=== PATIENT | female | born 1985 | race Hispanic/Latino ===

== ENCOUNTER 2017-08-14 08:39 | Emergency (ER) | payer MEDICAID, OTHER ==
[2017-08-14] MEDS ORDERED: TORADOL IM ONE (08:58)
--- NOTE | 2017-08-14 09:04 | Emergency Department Report ---
ED Back Pain/Injury HPI - General Chief Complaint: Back Pain/Injury Stated Complaint: BACK PAIN Time Seen by Provider: 08/14/17 08:56 Source: patient Limitations: No Limitations - History of Present Illness Initial Comments: This is a 32-year-old female nontoxic, well nourished in appearance, no acute signs of distress presents to the ED complaining of chronic intermittent back pain. Patient stated yesterday she was cooking and bending over and felt a sharp pain towards her lower back after lifting a pot for cooking. Patient denies any trauma to the region. Patient stated he has history of lumbar slipped disc and has these chronic episodes of lower back pain. Patient denies any bladder or bowel stability. Denies dysuria, polyuria, hematuria. Patient denies any urinary symptoms. Denies any abdominal pain, chest pain, shortness of breath, numbness, tingling, fever, chills, nausea, vomiting, headache, stiff neck, blurry vision. They stated back pain radiates towards her left lower extremity and describes it as aching with level of 8 out of 10. Patient states allergies to sulfa. Past medical history includes lumbar slipped disc. MD Complaint: back pain -: Gradual, days(s) (1) Similar Symptoms Previously: Yes Place: home Radiation: left leg Severity: moderate Severity scale (0 -10): 8 Quality: aching Consistency: intermittent Improves With: immobilization, supine, sitting upright Worsens With: movement, walking Context: while lifting, turning/twisting Associated Symptoms: denies other symptoms. denies: confusion, weakness, chest pain, numbness, difficulty walking, cough, difficulty urinating, diaphoresis, incontinence, fever/chills, constipation, headaches, abdominal pain, loss of appetite, malaise, nausea/vomiting, rash, seizure, shortness of breath, syncope - Related Data Previous Rx's Medication Instructions Recorded Last Taken Type methOCARBAMOL [Robaxin TAB] 500 mg PO BID #20 tab 04/17/15 Unknown Rx Vit-Fe Fumar-FA [ 1 tab PO QDAY #90 tablet 06/15/15 Unknown Rx Vitamin] Promethazine [Phenergan TAB] 25 mg PO Q6HR PRN #25 tab 06/15/15 Unknown Rx Acetaminophen/Codeine [Tylenol 1 tab PO Q8H PRN #14 tab 12/27/15 Unknown Rx /Codeine # 3 tab] Cyclobenzaprine [Flexeril] 10 mg PO BID PRN #10 tablet 08/14/17 Unknown Rx Ibuprofen [Motrin 600 MG tab] 600 mg PO Q8H PRN #30 tablet 08/14/17 Unknown Rx Nitrofurantoin [place]/M-Cryst 100 mg PO Q12HR #14 capsule 08/14/17 Unknown Rx [Macrobid CAP] Allergies Allergy/AdvReac Type Severity Reaction Status Date / Time Sulfa (Sulfonamide Allergy Unknown Verified 04/17/15 14:39 Antibiotics) ED Review of Systems ROS: Stated complaint: BACK PAIN Other details as noted in HPI Constitutional: denies: chills, fever Eyes: denies: eye pain, eye discharge, vision change ENT: denies: ear pain, throat pain Respiratory: denies: cough, shortness of breath, wheezing Cardiovascular: denies: chest pain, palpitations Endocrine: no symptoms reported Gastrointestinal: denies: abdominal pain, nausea, diarrhea Genitourinary: denies: urgency, dysuria, discharge Musculoskeletal: denies: back pain, joint swelling, arthralgia Skin: denies: rash, lesions Neurological: denies: headache, weakness, paresthesias Psychiatric: denies: anxiety, depression Hematological/Lymphatic: denies: easy bleeding, easy bruising ED Past Medical Hx - Past Medical History Previous Medical History?: Yes Additional medical history: slipped disk - Surgical History Past Surgical History?: No - Social History Smoking Status: Current Every Day Smoker Substance Use Type: None - Medications Home Medications: Home Medications Medication Instructions Recorded Confirmed Last Taken Type methOCARBAMOL [Robaxin TAB] 500 mg PO BID #20 tab 04/17/15 Unknown Rx Vit-Fe Fumar-FA [ 1 tab PO QDAY #90 tablet 06/15/15 Unknown Rx Vitamin] Promethazine [Phenergan TAB] 25 mg PO Q6HR PRN #25 tab 06/15/15 Unknown Rx Acetaminophen/Codeine [Tylenol 1 tab PO Q8H PRN #14 tab 12/27/15 Unknown Rx /Codeine # 3 tab] Cyclobenzaprine [Flexeril] 10 mg PO BID PRN #10 tablet 08/14/17 Unknown Rx Ibuprofen [Motrin 600 MG tab] 600 mg PO Q8H PRN #30 tablet 08/14/17 Unknown Rx Nitrofurantoin [place]/M-Cryst 100 mg PO Q12HR #14 capsule 08/14/17 Unknown Rx [Macrobid CAP] ED Physical Exam - General Limitations: No Limitations General appearance: alert, in no apparent distress - Head Head exam: Present: atraumatic, normocephalic, normal inspection - Eye Eye exam: Present: normal appearance, PERRL, EOMI. Absent: scleral icterus, conjunctival injection, nystagmus, periorbital swelling, periorbital tenderness Pupils: Present: normal accommodation - ENT ENT exam: Present: normal exam, normal orophraynx, mucous membranes moist, TM's normal bilaterally, normal external ear exam - Neck Neck exam: Present: normal inspection, full ROM. Absent: tenderness, meningismus, lymphadenopathy, thyromegaly - Respiratory Respiratory exam: Present: normal lung sounds bilaterally. Absent: respiratory distress, wheezes, rales, rhonchi, stridor, chest wall tenderness, accessory muscle use, decreased breath sounds, prolonged expiratory - Cardiovascular Cardiovascular Exam: Present: regular rate, normal rhythm, normal heart sounds. Absent: bradycardia, tachycardia, irregular rhythm, systolic murmur, diastolic murmur, rubs, gallop - GI/Abdominal GI/Abdominal exam: Present: soft, normal bowel sounds. Absent: distended, tenderness, guarding, rebound, rigid, diminished bowel sounds - Rectal Rectal exam: Present: deferred - Extremities Exam Extremities exam: Present: normal inspection, full ROM, normal capillary refill. Absent: tenderness, pedal edema, joint swelling, calf tenderness - Back Exam Back exam: Present: normal inspection, full ROM, paraspinal tenderness (lumbar region), rash noted. Absent: tenderness, CVA tenderness (R), CVA tenderness (L) , muscle spasm, vertebral tenderness - Expanded Back Exam Expanded Back exam: Absent: saddle anesthesia Back exam: Negative Straight Leg Raising: Left, Right - Neurological Exam Neurological exam: Present: alert, oriented X3, CN II-XII intact, normal gait, reflexes normal - Psychiatric Psychiatric exam: Present: normal affect, normal mood - Skin Skin exam: Present: warm, dry, intact, normal color. Absent: rash ED Course Vital Signs 08/14/17 08:44 Temperature 97.4 F L Pulse Rate 68 Respiratory 16 Rate Blood Pressure 133/74 O2 Sat by Pulse 99 Oximetry - Reevaluation(s) Reevaluation #1: 08/14/17 09:01 Patient is speaking in full sentences with no signs of distress noted. ED Medical Decision Making - Medical Decision Making This is a 32-year-old female that presents with low back strain. Patient is stable and was examined by myself. There is no urinary symptoms or CVA tenderness. Patient is a chronic issue and examination consistent of low back strain. Patient received Toradol 60 mg IM in the ED and states that this has significantly improved and are resolving. Patient denies any trauma to the region. Patient was instructed to follow-up with a primary care doctor in 3-5 days or if symptoms worsen and continue return to emergency room as soon as possible possible. Patient was prescribed ibuprofen and Flexeril and was instructed not operate heavy machinery while taking Flexeril due to sedation. Patient is hemodynamically stable with stable vital signs. Patient states he is feeling better. At time time of discharge, the patient does not seem toxic or ill in appearance. No acute signs of distress noted. Patient agrees to discharge treatment plan of care. No further questions noted by the patient. UA indicates UTI. Critical care attestation.: If time is entered above; I have spent that time in minutes in the direct care of this critically ill patient, excluding procedure time. ED Disposition Clinical Impression: Low back strain Qualifiers: Encounter type: initial encounter Qualified Code(s): S39.012A - Strain of muscle, fascia and tendon of lower back, initial encounter UTI (urinary tract infection) Qualifiers: Urinary tract infection type: site unspecified Hematuria presence: with hematuria Qualified Code(s): N39.0 - Urinary tract infection, site not specified ; R31.9 - Hematuria, unspecified; R31.9 - Hematuria, unspecified Disposition: -01 TO HOME OR SELFCARE Is pt being admited?: No Does the pt Need Aspirin: No Condition: Stable Instructions: Ibuprofen (By mouth), Cyclobenzaprine (By mouth), Low Back Strain (ED), Urinary Tract Infection in Women (ED) Additional Instructions: Follow-up with your primary care doctor in 3-5 days or if symptoms worsen such as bladder or bowel stability, chest pain, short of breath, numbness or tingling sensation in extremities, headache, dizziness, visual changes, nausea vomiting, or abdominal pain, return back to emergency room as was possible. Take ibuprofen and Flexeril as prescribed. Do not operate heavy machinery while taking Flexeril due to sedation Prescriptions: Cyclobenzaprine [Flexeril] 10 mg PO BID PRN #10 tablet PRN Reason: Muscle Spasm Ibuprofen [Motrin 600 MG tab] 600 mg PO Q8H PRN #30 tablet PRN Reason: Pain Nitrofurantoin [place]/M-Cryst [Macrobid CAP] 100 mg PO Q12HR #14 capsule Referrals: PRIMARY MD MERA [Primary Care Provider] - 3-5 Days BARBARA DIXON MD [Staff Physician] - 3-5 Days [facility] [Outside] - 3-5 Days [facility] [Outside] - 3-5 Days Forms: Work/School Release Form(ED)
[2017-08-14 12:05] LABS: Bilirubin,Urine Negative (Negative); Blood,Urine 3+ (Negative); Ketones,Urine Negative (Negative)
[2017-08-14 12:06] LABS: Leukocyte Esterase,Urine Moderate (Negative); Nitrite,Urine Negative (Negative); PH,Urine 5.5 (5.0-7.0); Urobilinogen,Urine < 2.0 mg/dL (<2.0)
[2017-08-14 12:08] LABS: Bacteria,Urine 2+ /HPF (Negative)
[2017-08-14 12:11] VITALS: BP 133/74
== END 2017-08-14 13:14 | disposition home or self-care (01) ==
LOC: ED 08:39
DX: S39.012A Strain of muscle, fascia and tendon of lower back, initial encounter (principal); N39.0 Urinary tract infection, site not specified; R31.9 Hematuria, unspecified; F17.200 Nicotine dependence, unspecified, uncomplicated; Z88.2 Allergy status to sulfonamides; X58.XXXA Exposure to other specified factors, initial encounter; Y93.9 Activity, unspecified; Y99.9 Unspecified external cause status; Y92.89 Other specified places as the place of occurrence of the external cause
CPT/HCPCS: 81001; 96372; 99283; J1885

== ENCOUNTER 2019-10-13 21:56 | Emergency (ER) | payer SELFPAY ==
[2019-10-13 22:14] VITALS: BP 149/84
--- NOTE | 2019-10-13 23:05 | XRay Report ---
RIGHT HAND 2 VIEWS INDICATION / CLINICAL INFORMATION: Right hand pain and swelling. History of blunt trauma to the dorsal right hand. COMPARISON: None available. FINDINGS: BONES and JOINT(S): No acute fracture or subluxation. No significant arthritis. SOFT TISSUES: No significant abnormality. ADDITIONAL FINDINGS: None. IMPRESSION: No acute abnormality of the right hand. Signer Name: Jaquan Hoyt MD Signed: 10/13/2019 11:00 PM Workstation Name: [id number]
== END 2019-10-14 00:05 | disposition left against medical advice (07) ==
LOC: ED 21:56
DX: M79.641 Pain in right hand (principal); Z53.21 Procedure and treatment not carried out due to patient leaving prior to being seen by health care provider

== ENCOUNTER 2020-02-14 20:55 | Emergency (ER) | payer MEDICAID ==
[2020-02-14 21:03] VITALS: BP 154/82
--- NOTE | 2020-02-14 21:38 | Emergency Department Report ---
ED Back Pain/Injury HPI - General Chief Complaint: Extremity Injury, Lower Stated Complaint: SWOLLEN FEET Time Seen by Provider: 02/14/20 21:30 Source: patient Limitations: No Limitations - History of Present Illness Initial Comments: 34-year-old obese female with emerge department complaining reemergence of pre-existing low back pain and left lower extremity redness radiculopathy which she has been dealing with for several months and been under the care of orthopedic. 2 weeks ago she states reemergence of her pain wants to be stopped. Working. Pain is sharp and radiates down her right thigh causing some numbness and tingling she reports no loss of bowel or bladder no saddle paresthesia no hematuria no dysuria no direct trauma. States that she is supposed to get a procedure done with orthopedic sometime ago but she delayed the recommended treatment which is the reason she thinks her pain has not yet resolved. She reports no new characteristics in her pain cycle MD Complaint: back pain Similar Symptoms Previously: Yes Place: home Quality: sharp Associated Symptoms: denies: numbness, incontinence, fever/chills, constipation, headaches, rash, seizure, shortness of breath - Related Data Previous Rx's Medication Instructions Recorded Last Taken Type Vit-Fe Fumar-FA [ 1 tab PO QDAY #90 tablet 06/15/15 Unknown Rx Vitamin] Promethazine [Phenergan] 25 mg PO Q6HR PRN #25 tab 06/15/15 Unknown Rx Acetaminophen/Codeine [Tylenol 1 tab PO Q8H PRN #14 tab 12/27/15 Unknown Rx /Codeine # 3 tab] Cyclobenzaprine [Flexeril] 10 mg PO BID PRN #10 tablet 08/14/17 Unknown Rx Ibuprofen [Motrin 600 MG tab] 600 mg PO Q8H PRN #30 tablet 08/14/17 Unknown Rx Nitrofurantoin [place]/M-Cryst 100 mg PO Q12HR #14 capsule 08/14/17 Unknown Rx [Macrobid CAP] Ketorolac [Toradol] 10 mg PO Q6H PRN #10 tablet 02/14/20 Unknown Rx methOCARBAMOL [Robaxin TAB] 500 mg PO BID #20 tab 02/14/20 Unknown Rx Allergies Allergy/AdvReac Type Severity Reaction Status Date / Time Sulfa (Sulfonamide Allergy Unknown Verified 02/14/20 21:01 Antibiotics) ED Review of Systems ROS: Stated complaint: SWOLLEN FEET Other details as noted in HPI Comment: All other systems reviewed and negative ED Past Medical Hx - Past Medical History Additional medical history: slipped disk-lower back, "a couple of them" - Surgical History Past Surgical History?: No - Social History Smoking Status: Never Smoker Substance Use Type: None - Medications Home Medications: Home Medications Medication Instructions Recorded Confirmed Last Taken Type Vit-Fe Fumar-FA [ 1 tab PO QDAY #90 tablet 06/15/15 Unknown Rx Vitamin] Promethazine [Phenergan] 25 mg PO Q6HR PRN #25 tab 06/15/15 Unknown Rx Acetaminophen/Codeine [Tylenol 1 tab PO Q8H PRN #14 tab 12/27/15 Unknown Rx /Codeine # 3 tab] Cyclobenzaprine [Flexeril] 10 mg PO BID PRN #10 tablet 08/14/17 Unknown Rx Ibuprofen [Motrin 600 MG tab] 600 mg PO Q8H PRN #30 tablet 08/14/17 Unknown Rx Nitrofurantoin [place]/M-Cryst 100 mg PO Q12HR #14 capsule 08/14/17 Unknown Rx [Macrobid CAP] Ketorolac [Toradol] 10 mg PO Q6H PRN #10 tablet 02/14/20 Unknown Rx methOCARBAMOL [Robaxin TAB] 500 mg PO BID #20 tab 02/14/20 Unknown Rx ED Physical Exam - General Limitations: No Limitations General appearance: alert, in no apparent distress - Head Head exam: Present: atraumatic, normocephalic - Eye Eye exam: Present: normal appearance, PERRL, EOMI - ENT ENT exam: Present: normal exam, normal orophraynx, mucous membranes moist - Neck Neck exam: Present: normal inspection, full ROM. Absent: meningismus, thyromegaly - Respiratory Respiratory exam: Present: normal lung sounds bilaterally. Absent: respiratory distress - Cardiovascular Cardiovascular Exam: Present: regular rate, normal rhythm. Absent: systolic murmur, diastolic murmur, rubs, gallop - GI/Abdominal GI/Abdominal exam: Present: soft, normal bowel sounds, other (Large pendulous abdomen). Absent: distended, tenderness, guarding, hyperactive bowel sounds, hypoactive bowel sounds, organomegaly - Extremities Exam Extremities exam: Present: normal inspection - Back Exam Back exam: Present: normal inspection, paraspinal tenderness, vertebral tenderness (Tenderness to the left sacroiliac joint radiates to buttocks with palpation. Straight leg raise is negative. Pulses 2+ and sensation is normal bilaterally.). Absent: CVA tenderness (R), CVA tenderness (L) - Neurological Exam Neurological exam: Present: alert, oriented X3 - Psychiatric Psychiatric exam: Present: normal affect, normal mood - Skin Skin exam: Present: warm, dry, intact, normal color. Absent: rash ED Course Vital Signs 02/14/20 20:59 Temperature 98.4 F Pulse Rate 87 Respiratory 18 Rate Blood Pressure 154/82 O2 Sat by Pulse 98 Oximetry ED Medical Decision Making - Medical Decision Making Pt presents the emergency department complaining of back pain most consistent with lumbar go with sciatica back Pain Most Consistent with Strain/Contusion. Differential Diagnosis Includes Lumbar Go Versus Musculoskeletal Spasm, Strain Versus Sciatica. No Back Pain Red Flags on History or Physical. Presentation Not Consistent with Malignancy, Fracture, Cauda Equina, Abdominal Aortic Aneurysm, Viscus Perforation, Pulmonary Embolism, Renal Colic, Pyelonephritis. Patient reports no B symptoms, trauma trauma, incontinence, saddle anesthesia, distal weakness, urinary symptoms and is a febrile. Critical care attestation.: If time is entered above; I have spent that time in minutes in the direct care of this critically ill patient, excluding procedure time. ED Disposition Clinical Impression: Chronic pain, Lumbago with sciatica, left side Disposition: - TO HOME OR SELFCARE Is pt being admited?: No Does the pt Need Aspirin: No Condition: Stable Instructions: Lumbar Radiculopathy (ED) Prescriptions: methOCARBAMOL [Robaxin TAB] 500 mg PO BID #20 tab Ketorolac [Toradol] 10 mg PO Q6H PRN #10 tablet PRN Reason: Pain Referrals: PRIMARY CAREMD [Primary Care Provider] - 3-5 Days JOSAFAT ADAIR MD [Staff Physician] - 3-5 Days
== END 2020-02-14 22:05 | disposition home or self-care (01) ==
LOC: ED 20:55
DX: G89.29 Other chronic pain (principal); M54.42 Lumbago with sciatica, left side; Z79.1 Long term (current) use of non-steroidal anti-inflammatories (NSAID); Z79.899 Other long term (current) drug therapy; Z88.2 Allergy status to sulfonamides
CPT/HCPCS: 99281

== ENCOUNTER 2020-09-01 21:06 | Emergency (ER) | payer MEDICAID | END 2020-09-01 21:10 | disposition left against medical advice (07) | LOC: ED 21:06 | DX: R10.9 Unspecified abdominal pain (principal); Z53.21 Procedure and treatment not carried out due to patient leaving prior to being seen by health care provider ==

== ENCOUNTER 2021-05-29 09:45 | Emergency (ER) | payer MEDICAID ==
[2021-05-29 10:08] VITALS: BP 113/65
== END 2021-05-29 14:11 | disposition left against medical advice (07) ==
LOC: ED 09:45
DX: M54.5 Low back pain (principal); Z53.21 Procedure and treatment not carried out due to patient leaving prior to being seen by health care provider

== ENCOUNTER 2022-01-20 17:53 | Emergency (ER) | payer MEDICAID ==
[2022-01-20 22:40] LABS: Bilirubin,Urine NEG (Negative); Blood,Urine NEG (Negative); Color,Urine Yellow (Yellow); Mucus,Urine 3+ /HPF; Protein,Urine <15 mg/dL mg/dL (Negative); Urobilinogen,Urine < 2.0 mg/dL (<2.0)
[2022-01-20 22:52] LABS: Basophils % (Auto) 0.3 % (0.0-1.8); Eosinophils # (Auto) 0.2 K/mm3 (0.0-0.4); Eosinophils % (Auto) 1.3 % (0.0-4.3); Hematocrit 35.7 % (30.3-42.9); Hemoglobin 11.1 gm/dl (10.1-14.3); Lymphocytes # (Auto) 0.8 K/mm3 (1.2-5.4); Lymphocytes % (Auto) 6.3 % (13.4-35.0); Mean Corpuscular HGB Conc 31 % (30-34); Monocytes # (Auto) 0.6 K/mm3 (0.0-0.8); Monocytes % (Auto) 4.6 % (0.0-7.3); Platelet Count 313 K/mm3 (140-440); Red Blood Count 5.42 M/mm3 (3.65-5.03); Red Cell Distribution Width 18.2 % (13.2-15.2)
[2022-01-20 22:55] LABS: Mean Corpuscular Volume 66 fl (79-97)
[2022-01-20 23:08] LABS: Alanine Aminotransferase 16 units/L (7-56); Albumin 4.2 g/dL (3.9-5); BUN/Creatinine Ratio 22; Blood Urea Nitrogen 11 mg/dL (7-17); Hemolysis Index 6
--- NOTE | 2022-01-21 01:48 | Emergency Department Report ---
ED General Adult HPI - General Chief complaint: Weakness Stated complaint: DIZZY/WEAK/VOMITING Time Seen by Provider: 01/20/22 21:40 Source: patient Mode of arrival: Ambulatory Limitations: No Limitations - History of Present Illness Initial comments: 36-year-old female with elevated BMI presents emerged department complaining of of having issues with weakness in and dizziness following increased vomiting and episode of diarrhea which he thought was secondary to gastroenteritis over the last few days. States that her daughters ate at a similar place and he developed the same symptoms so she was concerned about dehydration or a food poisoning type of infectious process. During one of her diarrhea episode she also had a tampon that became dislodged from her pelvic area and the states that may have been up there for 1 week but reports no foul order no pelvic pain no vaginal discharge noted no dysuria. Reports no fever or rashes. -: Gradual Quality: dull Improves with: none Worsens with: none Associated Symptoms: denies other symptoms Treatments Prior to Arrival: none - Related Data Previous Rx's Medication Instructions Recorded Last Taken Type Vit-Fe Fumar-FA [ 1 tab PO QDAY #90 tablet 06/15/15 Unknown Rx Vitamin] Promethazine [Phenergan] 25 mg PO Q6HR PRN #25 tab 06/15/15 Unknown Rx Acetaminophen/Codeine [Tylenol 1 tab PO Q8H PRN #14 tab 12/27/15 Unknown Rx /Codeine # 3 tab] Cyclobenzaprine [Flexeril] 10 mg PO BID PRN #10 tablet 08/14/17 Unknown Rx Ibuprofen [Motrin 600 MG tab] 600 mg PO Q8H PRN #30 tablet 08/14/17 Unknown Rx Nitrofurantoin [place]/M-Cryst 100 mg PO Q12HR #14 capsule 08/14/17 Unknown Rx [Macrobid CAP] Ketorolac [Toradol] 10 mg PO Q6H PRN #10 tablet 02/14/20 Unknown Rx methOCARBAMOL [Robaxin TAB] 500 mg PO BID #20 tab 02/14/20 Unknown Rx Ciprofloxacin HCl 500 mg PO BID #14 01/21/22 Unknown Rx Ondansetron [Zofran ODT TAB] 8 mg PO Q8HR #20 tab.rapdis 01/21/22 Unknown Rx metroNIDAZOLE [Flagyl] 500 mg PO Q12HR #14 tab 01/21/22 Unknown Rx Allergies Allergy/AdvReac Type Severity Reaction Status Date / Time Sulfa (Sulfonamide Allergy Unknown Verified 05/29/21 10:04 Antibiotics) ED Review of Systems ROS: Stated complaint: DIZZY/WEAK/VOMITING Other details as noted in HPI Comment: All other systems reviewed and negative ED Past Medical Hx - Past Medical History Hx Arthritis: Yes (BILATERAL HIPS) Additional medical history: slipped disk-lower back, "a couple of them" - Social History Smoking Status: Never Smoker Substance Use Type: None - Medications Home Medications: Home Medications Medication Instructions Recorded Confirmed Last Taken Type Vit-Fe Fumar-FA [ 1 tab PO QDAY #90 tablet 06/15/15 Unknown Rx Vitamin] Promethazine [Phenergan] 25 mg PO Q6HR PRN #25 tab 06/15/15 Unknown Rx Acetaminophen/Codeine [Tylenol 1 tab PO Q8H PRN #14 tab 12/27/15 Unknown Rx /Codeine # 3 tab] Cyclobenzaprine [Flexeril] 10 mg PO BID PRN #10 tablet 08/14/17 Unknown Rx Ibuprofen [Motrin 600 MG tab] 600 mg PO Q8H PRN #30 tablet 08/14/17 Unknown Rx Nitrofurantoin [place]/M-Cryst 100 mg PO Q12HR #14 capsule 08/14/17 Unknown Rx [Macrobid CAP] Ketorolac [Toradol] 10 mg PO Q6H PRN #10 tablet 02/14/20 Unknown Rx methOCARBAMOL [Robaxin TAB] 500 mg PO BID #20 tab 02/14/20 Unknown Rx Ciprofloxacin HCl 500 mg PO BID #14 01/21/22 Unknown Rx Ondansetron [Zofran ODT TAB] 8 mg PO Q8HR #20 tab.rapdis 01/21/22 Unknown Rx metroNIDAZOLE [Flagyl] 500 mg PO Q12HR #14 tab 01/21/22 Unknown Rx ED Physical Exam - General Limitations: No Limitations General appearance: alert, in no apparent distress - Head Head exam: Present: atraumatic, normocephalic - Eye Eye exam: Present: normal appearance, PERRL, EOMI Pupils: Present: normal accommodation - ENT ENT exam: Present: mucous membranes moist - Neck Neck exam: Present: normal inspection - Respiratory Respiratory exam: Present: normal lung sounds bilaterally. Absent: respiratory distress - Cardiovascular Cardiovascular Exam: Present: regular rate, normal rhythm. Absent: systolic murmur, diastolic murmur, rubs, gallop - GI/Abdominal GI/Abdominal exam: Present: soft, normal bowel sounds - Extremities Exam Extremities exam: Present: normal inspection - Back Exam Back exam: Present: normal inspection - Neurological Exam Neurological exam: Present: alert, oriented X3 - Psychiatric Psychiatric exam: Present: normal affect, normal mood - Skin Skin exam: Present: warm, dry, intact, normal color. Absent: rash ED Course Vital Signs 01/20/22 18:27 Temperature 98.7 F Pulse Rate 95 H Respiratory 17 Rate Blood Pressure 143/77 O2 Sat by Pulse 98 Oximetry ED Medical Decision Making - Lab Data Result diagrams: 01/20/22 22:16 01/20/22 22:16 Critical care attestation.: If time is entered above; I have spent that time in minutes in the direct care of this critically ill patient, excluding procedure time. ED Disposition Clinical Impression: Myalgia, Gastroenteritis Disposition: HOME / SELF CARE / HOMELESS Is pt being admited?: No Does the pt Need Aspirin: No Condition: Stable Instructions: Viral Gastroenteritis, Adult, Nausea and Vomiting, Adult, Musculoskeletal Pain, Vomiting, Adult Prescriptions: Ciprofloxacin HCl 500 mg PO BID #14 metroNIDAZOLE [Flagyl] 500 mg PO Q12HR #14 tab Ondansetron [Zofran ODT TAB] 8 mg PO Q8HR #20 tab.jordan Referrals: ALEXANDRA MATHIS MD [Staff Physician] - 3-5 Days PRIMARY CARE, [Primary Care Provider] - 3-5 Days
[2022-01-21 01:53] VITALS: BP 131/74
== END 2022-01-21 01:56 | disposition home or self-care (01) ==
LOC: ED 17:53
DX: M79.10 Myalgia, unspecified site (principal); K52.9 Noninfective gastroenteritis and colitis, unspecified; Z88.2 Allergy status to sulfonamides
CPT/HCPCS: 36415; 80053; 81001; 83690; 84703; 85025; 87086; 99283